=== PATIENT | female | born 1995 | race Caucasian/White ===

== ENCOUNTER 2018-03-25 19:07 | Emergency (ER) | payer OTHER ==
[~2018-03-25] VITALS: Ht 167.6 cm; Wt 97.5 kg
[2018-03-25] MEDS ORDERED: PRENATAL + DHA1 EAC1 (19:28)
== END 2018-03-25 20:10 | disposition home or self-care (01) ==
LOC: ER 19:07
DX: K29.70 Gastritis, unspecified, without bleeding (principal)